=== PATIENT | female | born 1995 | race Caucasian/White ===

== ENCOUNTER 2016-12-18 23:11 | Emergency (ER) | payer OTHER ==
[2016-12-18 23:25] VITALS: BP 129/66; PULSE 104; RESP 18; TEMP 98
[2016-12-18] MEDS ORDERED: valACYclovir 500 MG TAB PO STA (23:41)
--- NOTE | 2016-12-18 23:45 | ED ---
General Adult HPI - General Chief complaint: Headache Stated complaint: Head/Neck Pain/ 9 weeks Time Seen by Provider: 12/18/16 23:30 Source: patient, RN notes reviewed Mode of arrival: ambulatory Limitations: no limitations - History of Present Illness Initial comments: 21-year-old female presented emergency Department chief complaint headache, loss of neck pain. Patient states started a few days ago and states that she feels some lumps in her posterior neck and also shebumps her scalp. She states she is very sensitive. Patient did states she had chickenpox when she was younger. Denies fever, chills. Denies any ear pain, sore throat, fever, chills. Denies any visual changes denies any relief with Tylenol at this time. Patient states that she is and weeks and does see Jason King - Related Data Home Medications Medication Instructions Recorded Confirmed metFORMIN HCL [Glucophage] 500 mg PO BID 12/18/16 12/18/16 Previous Rx's Medication Instructions Recorded valACYclovir HCL [Valtrex] 1,000 mg PO Q8HR #30 tab 12/18/16 Allergies Allergy/AdvReac Type Severity Reaction Status Date / Time No Known Allergies Allergy Verified 12/18/16 23:25 Review of Systems ROS Statement: Those systems with pertinent positive or pertinent negative responses have been documented in the HPI. ROS Other: All systems not noted in ROS Statement are negative. Past Medical History Additional Past Medical History / Comment(s): heart palpitations History of Any Multi-Drug Resistant Organisms: None Reported Past Surgical History: No Surgical Hx Reported Past Psychological History: Depression Smoking Status: Current every day smoker Past Alcohol Use History: None Reported Past Drug Use History: None Reported General Exam Limitations: no limitations General appearance: alert, in no apparent distress Head exam: Present: atraumatic, normocephalic. Absent: normal inspection ( Vesicles noted on the left side of the scalp and posterior neck region there is no facial lesions noted) Eye exam: Present: normal appearance, PERRL, EOMI. Absent: scleral icterus, conjunctival injection, periorbital swelling ENT exam: Present: normal exam, normal oropharynx, mucous membranes moist, TM's normal bilaterally, normal external ear exam Neck exam: Present: normal inspection, full ROM. Absent: tenderness, meningismus, lymphadenopathy Respiratory exam: Present: normal lung sounds bilaterally. Absent: respiratory distress, wheezes, rales, rhonchi, stridor Cardiovascular Exam: Present: regular rate, normal rhythm, normal heart sounds. Absent: systolic murmur, diastolic murmur, rubs, gallop, clicks Neurological exam: Present: alert, oriented X3, CN II-XII intact, reflexes normal. Absent: motor sensory deficit Psychiatric exam: Present: normal affect, normal mood Skin exam: Present: warm, dry, intact, normal color. Absent: rash Course Vital Signs 12/18/16 23:21 Temperature 98.0 F Pulse Rate 104 H Respiratory 18 Rate Blood Pressure 129/66 O2 Sat by Pulse 100 Oximetry Medical Decision Making - Medical Decision Making 21-year-old female presented for left sided head and neck pain. Patient has shingles. Patient was started on Valtrex. 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 Return parameters were discussed. She'll take over-the- counter Tylenol. Disposition Clinical Impression: Herpes zoster Disposition: HOME SELF-CARE Condition: Stable Instructions: Shingles (ED) Additional Instructions: Please return to the Emergency Department if symptoms worsen or any other concerns. Prescriptions: valACYclovir HCL [Valtrex] 1,000 mg PO Q8HR #30 tab Time of Disposition: 23:44
== END 2016-12-18 23:52 | disposition home or self-care (01) ==
LOC: EC 23:11
DX: O98.511 Other viral diseases complicating pregnancy, first trimester (principal); B02.9 Zoster without complications; O99.331 Smoking (tobacco) complicating pregnancy, first trimester; F17.200 Nicotine dependence, unspecified, uncomplicated; Z3A.09 9 weeks gestation of pregnancy; Z79.84 Long term (current) use of oral hypoglycemic drugs
CPT/HCPCS: 99283

== ENCOUNTER → 2017-02-17 | Outpatient (CLI) | payer OTHER ==
[2017-02-19 07:45] LABS: Hepatits C Virus RNA, Quant <12 IU/mL (<12); LOG HCV IU/mL <1.08 (<1.08)
== END | disposition home or self-care (01) ==
LOC: LABWHC1 10:28
PROVIDERS: ATTEND Midwife
DX: Z09 Encounter for follow-up examination after completed treatment for conditions other than malignant neoplasm (principal); Z86.19 Personal history of other infectious and parasitic diseases
CPT/HCPCS: 36415; 87522

== ENCOUNTER → 2017-03-08 | Outpatient (CLI) | payer OTHER ==
--- NOTE | 2017-03-08 08:23 | US ---
EXAMINATION TYPE: US gallbladder DATE OF EXAM: 03/08/2017 COMPARISON: NONE CLINICAL HISTORY: R10.11 Right upper quadrant pain. EXAM MEASUREMENTS: Liver Length: 14.1 cm Gallbladder Wall: 0.2 cm CBD: 0.3 cm Right Kidney: 11.6 x 4.3 x 4.9 cm Pancreas: wnl Liver: wnl Gallbladder: small amount of dependant sludge Evidence for sonographic Troy's sign: No CBD: wnl Right Kidney: wnl Limited views of the pancreas are normal. The liver is normal in size without evidence of biliary dilatation. There is a small amount of sludge within the gallbladder. The gallbladder wall measures 2.3 mm. Dista l common hepatic duct measures 2.7 mm. The right kidney appears normal. IMPRESSION: SMALL AMOUNT OF SLUDGE WITHIN THE GALLBLADDER.
== END | disposition home or self-care (01) ==
LOC: RADUSWWP 07:35
PROVIDERS: ATTEND Obstetrics & Gynecology
DX: K82.8 Other specified diseases of gallbladder (principal)
CPT/HCPCS: 76705

== ENCOUNTER → 2017-04-26 | Outpatient (CLI) | payer OTHER ==
[2017-04-26 12:36] LABS: Basophils % (A) 0 %; CH 31.8; CHCM 34.3; Eosinophils # (A) 0.1 k/uL (0-0.7); Eosinophils % (A) 1 %; HCT 34.1 % (34.0-46.0); HDW 2.44; HGB 11.5 gm/dL (11.4-16.0); Luc # (Auto) 0.12; Luc % (Auto) 1; Lymphocytes # (A) 1.5 k/uL (1.0-4.8); Lymphocytes % (A) 14 %; MCH 31.6 pg (25.0-35.0); MCHC 33.8 g/dL (31.0-37.0); MCV 93.3 fL (80.0-100.0); Mean Platelet Volume 9.9; Monocytes # (A) 0.3 k/uL (0-1.0); Monocytes % (A) 3 %; Neutrophils # (A) 9.2 k/uL (1.3-7.7); Neutrophils % (A) 82 %; RBC 3.65 m/uL (3.80-5.40); WBC 11.3 k/uL (3.8-10.6); WBC (Perox) 11.07
[2017-04-26 15:36] LABS: Treponemal Ab Non-Reactive (Non-Reactive)
== END | disposition home or self-care (01) ==
LOC: LABWHC1 10:21
PROVIDERS: ATTEND Midwife
DX: Z36 Encounter for antenatal screening of mother (principal)
CPT/HCPCS: 36415; 82950; 85025; 86780; 87390

== ENCOUNTER 2017-06-23 | Outpatient (CLI) | payer OTHER ==
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
== END 2017-06-23 22:30 | disposition home or self-care (01) ==
CPT/HCPCS: 59025; G0463; 99213

== ENCOUNTER 2017-06-23 17:22 | Emergency (ER) | payer OTHER ==
[2017-06-23 17:33] VITALS: BP 153/80; PULSE 98; RESP 18; TEMP 98.1
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
== END 2017-06-23 18:12 | disposition home or self-care (01) ==
LOC: EC 17:22
DX: Z04.1 Encounter for examination and observation following transport accident (principal); Z3A.36 36 weeks gestation of pregnancy; Z79.891 Long term (current) use of opiate analgesic; Z79.84 Long term (current) use of oral hypoglycemic drugs; V48.9XXA Unspecified car occupant injured in noncollision transport accident in traffic accident, initial encounter; Y92.410 Unspecified street and highway as the place of occurrence of the external cause
CPT/HCPCS: 99284

== ENCOUNTER → 2020-01-15 | Outpatient (CLI) | payer OTHER | END | disposition home or self-care (01) | LOC: LABWHC1 11:29 | PROVIDERS: ATTEND Family Medicine | DX: N91.2 Amenorrhea, unspecified (principal) | CPT/HCPCS: 36415; 84702 ==

== ENCOUNTER 2022-01-08 17:07 | Emergency (ER) | payer OTHER ==
[2022-01-08 17:16] VITALS: RESP 18; TEMP 98.1
[2022-01-08] MEDS ORDERED: SODIUM CHLORIDE 0.9% 1,000 ML IV STA (18:07)
[2022-01-08] MEDS ORDERED: MORPHINE SULFATE 4 MG/ML SYRINGE IV STA (18:16)
[2022-01-08] MEDS ORDERED: ONDANSETRON 4 MG/2 ML VIAL IVP STA (18:16)
[2022-01-08 18:17] LABS: Basophils % (A) 1 %; Eosinophils # (A) 0.1 k/uL (0-0.7); Eosinophils % (A) 1 %; HCT 45.1 % (34.0-46.0); Lymphocytes % (A) 13 %; MCH 31.4 pg (25.0-35.0); MCHC 33.3 g/dL (31.0-37.0); MCV 94.4 fL (80.0-100.0); Mean Platelet Volume 8.4; Monocytes # (A) 0.3 k/uL (0-1.0); Monocytes % (A) 4 %; Neutrophils # (A) 5.9 k/uL (1.3-7.7); Neutrophils % (A) 80 %; Platelet Count 191 k/uL (150-450); RBC 4.78 m/uL (3.80-5.40); RDW 12.4 % (11.5-15.5); WBC 7.4 k/uL (3.8-10.6)
--- NOTE | 2022-01-08 18:20 | ED ---
General Adult HPI - General Chief complaint: Recheck/Abnormal Lab/Rx Stated complaint: Rt sided pain,Urgent Care sent pt in Time Seen by Provider: 01/08/22 18:05 Source: patient, RN notes reviewed Mode of arrival: ambulatory Limitations: no limitations - History of Present Illness Initial comments: Right upper quadrant and epigastric pain this is a pleasant 27-year-old female with a history of hepatitis C, she presents to the emergency department complaining of nausea, vomiting, and diarrhea. Patient states symptomology started yesterday. She went to urgent care today and found bilirubin her urine. She was sent here for evaluation. Patient denies any fever. She denies any illicit drug abuse. Patient does have a history of IV drug abuse. She states that's how she got the hepatitis C several years ago. No previous abdominal kyle geries. Positive cigarette smoker. Occasional alcohol use. Denies illicit drug abuse. No acetaminophen use. No headache, no fever or chills, no changes in vision or hearing, no sore throat or difficulty with speech, no neck pain, no chest pain or shortness of breath, no changes in urination or bowel movements, no numbness or tingling, no extremity pain, no skin rashes or lesions. - Related Data Previous Rx's Medication Instructions Recorded Famotidine [Pepcid] 20 mg PO BID #30 tablet 01/08/22 Ondansetron [Zofran ODT] 4 mg PO Q8HR #20 tab 01/08/22 Allergies Allergy/AdvReac Type Severity Reaction Status Date / Time No Known Allergies Allergy Verified 01/08/22 18:53 Review of Systems ROS Statement: Those systems with pertinent positive or pertinent negative responses have been documented in the HPI. ROS Other: All systems not noted in ROS Statement are negative. Past Medical History Additional Past Medical History / Comment(s): heart palpitations History of Any Multi-Drug Resistant Organisms: None Reported Past Surgical History: No Surgical Hx Reported, Section Past Psychological History: Depression Smoking Status: Current every day smoker Past Alcohol Use History: None Reported Past Drug Use History: None Reported General Exam - General Exam Comments Initial Comments: Healthy-appearing 27-year-old female distress. Patient does not appear to be ill or toxic. Mildly tachycardic, remainder of vital signs are stable. Cranial nerves II through XII grossly intact. Limitations: no limitations General appearance: alert, in no apparent distress Head exam: Present: atraumatic, normocephalic, normal inspection Eye exam: Present: normal appearance, PERRL, EOMI. Absent: scleral icterus, conjunctival injection, nystagmus, periorbital swelling ENT exam: Present: normal exam, normal oropharynx, mucous membranes moist. Absent: mucous membranes dry Neck exam: Present: normal inspection, full ROM. Absent: tenderness, meningismus, lymphadenopathy Respiratory exam: Present: normal lung sounds bilaterally. Absent: respiratory distress, wheezes, rales, rhonchi, stridor Cardiovascular Exam: Present: normal rhythm, tachycardia (104 bpm), normal heart sounds. Absent: systolic murmur, diastolic murmur, rubs, gallop, clicks GI/Abdominal exam: Present: soft, tenderness (Tenderness in the epigastric region and to a lesser sent the right upper quadrant. Voluntary guarding without rebound or percussion tenderness), guarding, normal bowel sounds. Absent: distended, rebound, rigid Extremities exam: Present: normal inspection, full ROM, normal capillary refill. Absent: tenderness, pedal edema, joint swelling, calf tenderness Back exam: Present: normal inspection Neurological exam: Present: alert, oriented X3, CN II-XII intact Psychiatric exam: Present: normal affect, normal mood Skin exam: Present: warm, dry, intact, normal color. Absent: rash Course Vital Signs 01/08/22 17:12 Temperature 98.1 F Pulse Rate 104 H Respiratory 18 Rate Blood Pressure 120/80 O2 Sat by Pulse 100 Oximetry - Reevaluation(s) Reevaluation #1: 01/08/22 20:15 Medical record is reviewed Symptoms are improved here in the emergency department, repeat abdominal examination is benign, patient in no distress. Patient's workup here essentially negative. Patient is informed of results and questions answered Patient in no distress Medical Decision Making - Medical Decision Making Patient presents with epigastric and right upper quadrant pain, vomiting, and diarrhea. Differential include pancreatitis, gallbladder disease, hepatic disease, possible peptic ulcer disease. Given the patient's symptomology, less likely to be perforated viscus. Patient has no cardiac pulmonary complaints, presentation does not fit the clinical picture. No evidence of jaundice or scleral icterus twits when the patient's bili rubinuria. She has no vaginal discharge and denies chance of . Note that the patient's reevaluation was essentially benign. Patient's workup here was negative. Patient had no significant abdominal tenderness other than mild epigastric tenderness. This does raise a suspicion of possible early peptic ulcer disease--Although the patient's cephalgia more consistent with gastroenteritis as she is in no distress at discharge without any significant tenderness. There was no hematemesis or coffee-ground emesis. No melena or hematochezia. We'll place the patient on famotidine for the next few days as well as Zofran. Patient was able to hold down fluids in the ER without difficulty. Patient was told to return to the ER for any signs or symptoms worsen. Told to return immediately if any other problems arise. All questions answered. Treatment plan discussed. Patient in agreement Every effort has been made to ensure accuracy of this dictation. However, due to the limitations of electronic medical records and dictation devices, errors in charting still occur. - Lab Data Result diagrams: 01/08/22 18:11 01/08/22 18:11 Lab Results 01/08/22 01/08/22 01/08/22 Range/Units 18:11 18:11 18:43 WBC 7.4 (3.8-10.6) k/uL RBC 4.78 (3.80-5.40) m/uL Hgb 15.0 (11.4-16.0) gm/dL Hct 45.1 (34.0-46.0) % MCV 94.4 (80.0-100.0) fL MCH 31.4 (25.0-35.0) pg MCHC 33.3 (31.0-37.0) g/dL RDW 12.4 (11.5-15.5) % Plt Count 191 (150-450) k/uL MPV 8.4 Neutrophils % 80 % Lymphocytes % 13 % Monocytes % 4 % Eosinophils % 1 % Basophils % 1 % Neutrophils # 5.9 (1.3-7.7) k/uL Lymphocytes # 1.0 (1.0-4.8) k/uL Monocytes # 0.3 (0-1.0) k/uL Eosinophils # 0.1 (0-0.7) k/uL Basophils # 0.0 (0-0.2) k/uL Sodium 136 L (137-145) mmol/L Potassium 3.5 (3.5-5.1) mmol/L Chloride 103 (98-107) mmol/L Carbon Dioxide 25 (22-30) mmol/L Anion Gap 8 mmol/L BUN 13 (7-17) mg/dL Creatinine 0.65 (0.52-1.04) mg/dL Est GFR (CKD-EPI)AfAm >90 (>60 ml/min/1.73 sqM) Est GFR (CKD-EPI)NonAf >90 (>60 ml/min/1.73 sqM) Glucose 84 (74-99) mg/dL Plasma Lactic Acid [place] 0.7 (0.7-2.0) mmol/L Calcium 9.2 (8.4-10.2) mg/dL Total Bilirubin 0.8 (0.2-1.3) mg/dL Conjugated Bilirubin 0.0 (0.0-0.3) mg/dL Unconjugated Bilirubin 0.7 (0.0-1.1) mg/dL Delta Bilirubin 0.1 (0.0-0.2) mg/dL AST 24 (14-36) U/L ALT 19 (4-34) U/L Alkaline Phosphatase 71 (38-126) U/L Total Protein 7.7 (6.3-8.2) g/dL Albumin 4.5 (3.5-5.0) g/dL Lipase 34 (23-300) U/L Urine Color Urine Appearance (Clear) Urine pH (5.0-8.0) Ur Specific [place] (1.001-1.035) Urine Protein (Negative) Urine Glucose (UA) (Negative) Urine Ketones (Negative) Urine Blood (Negative) Urine Nitrite (Negative) Urine Bilirubin (Negative) Urine Urobilinogen (<2.0) mg/dL Ur Leukocyte Esterase (Negative) Urine RBC (0-5) /hpf Urine WBC (0-5) /hpf Ur Squamous Epith Cells (0-4) /hpf Urine Bacteria (None) /hpf Hyaline Casts (0-2) /lpf Urine Mucus (None) /hpf 01/08/22 Range/Units 19:56 WBC (3.8-10.6) k/uL RBC (3.80-5.40) m/uL Hgb (11.4-16.0) gm/dL Hct (34.0-46.0) % MCV (80.0-100.0) fL MCH (25.0-35.0) pg MCHC (31.0-37.0) g/dL RDW (11.5-15.5) % Plt Count (150-450) k/uL MPV Neutrophils % % Lymphocytes % % Monocytes % % Eosinophils % % Basophils % % Neutrophils # (1.3-7.7) k/uL Lymphocytes # (1.0-4.8) k/uL Monocytes # (0-1.0) k/uL Eosinophils # (0-0.7) k/uL Basophils # (0-0.2) k/uL Sodium (137-145) mmol/L Potassium (3.5-5.1) mmol/L Chloride (98-107) mmol/L Carbon Dioxide (22-30) mmol/L Anion Gap mmol/L BUN (7-17) mg/dL Creatinine (0.52-1.04) mg/dL Est GFR (CKD-EPI)AfAm (>60 ml/min/1.73 sqM) Est GFR (CKD-EPI)NonAf (>60 ml/min/1.73 sqM) Glucose (74-99) mg/dL Plasma Lactic Acid [place] (0.7-2.0) mmol/L Calcium (8.4-10.2) mg/dL Total Bilirubin (0.2-1.3) mg/dL Conjugated Bilirubin (0.0-0.3) mg/dL Unconjugated Bilirubin (0.0-1.1) mg/dL Delta Bilirubin (0.0-0.2) mg/dL AST (14-36) U/L ALT (4-34) U/L Alkaline Phosphatase (38-126) U/L Total Protein (6.3-8.2) g/dL Albumin (3.5-5.0) g/dL Lipase (23-300) U/L Urine Color Yellow Urine Appearance Cloudy H (Clear) Urine pH 6.0 (5.0-8.0) Ur Specific [place] 1.029 (1.001-1.035) Urine Protein Trace H (Negative) Urine Glucose (UA) Negative (Negative) Urine Ketones 1+ H (Negative) Urine Blood Negative (Negative) Urine Nitrite Negative (Negative) Urine Bilirubin Negative (Negative) Urine Urobilinogen 2.0 (<2.0) mg/dL Ur Leukocyte Esterase Negative (Negative) Urine RBC 2 (0-5) /hpf Urine WBC 5 (0-5) /hpf Ur Squamous Epith Cells 6 H (0-4) /hpf Urine Bacteria Rare H (None) /hpf Hyaline Casts 1 (0-2) /lpf Urine Mucus Many H (None) /hpf - Radiology Data Radiology results: report reviewed, image reviewed Disposition Clinical Impression: Gastroenteritis, Epigastric abdominal pain Disposition: HOME SELF-CARE Condition: Good Instructions (If sedation given, give patient instructions): Gastroenteritis (ED) Additional Instructions: Follow-up with your regular physician as directed. Return to the ER immediately if any symptoms worsen, new symptoms arise, or any other problems develop. Prescriptions: Famotidine [Pepcid] 20 mg PO BID #30 tablet Ondansetron [Zofran ODT] 4 mg PO Q8HR #20 tab Is patient prescribed a controlled substance at d/c from ED?: No Referrals: Amanda Astorga MD [STAFF PHYSICIAN] - 01/15/22 Time of Disposition: 20:19
[2022-01-08 18:26] LABS: ALT 19 U/L (4-34); AST 24 U/L (14-36); African American GFR (CKD) >90 (>60 ml/min/1.73 sqM); Albumin 4.5 g/dL (3.5-5.0); Alkaline Phosphatase 71 U/L (38-126); Anion Gap 8 mmol/L; Bilirubin, Delta 0.1 mg/dL (0.0-0.2); Bilirubin,Unconjugated 0.7 mg/dL (0.0-1.1); Blood Urea Nitrogen 13 mg/dL (7-17); Calcium 9.2 mg/dL (8.4-10.2); Carbon Dioxide 25 mmol/L (22-30); Chloride 103 mmol/L (98-107); Glucose 84 mg/dL (74-99); Lipase 34 U/L (23-300); Non-African American GFR(CKD) >90 (>60 ml/min/1.73 sqM); Sodium 136 mmol/L (137-145); Total Bilirubin 0.8 mg/dL (0.2-1.3); Total Protein 7.7 g/dL (6.3-8.2)
[2022-01-08 18:51] LABS: Potassium 3.5 mmol/L (3.5-5.1)
--- NOTE | 2022-01-08 20:04 | US ---
EXAMINATION TYPE: US abdomen limited DATE OF EXAM: 01/08/2022 COMPARISON: 2016 CLINICAL HISTORY: RUQ and epigastric pain EXAM MEASUREMENTS: Liver Length: 16.4 cm Gallbladder Wall: 0.31 cm CBD: 0.26 cm Right Kidney: 10.3 x 3.8 x 5.2 cm Pancreas: Tail obscured by overlying bowel gas Liver: wnl Gallbladder: Appears wnl Evidence for sonographic Troy's sign: No CBD: wnl Right Kidney: No hydronephrosis or masses seen IMPRESSION: No acute process.
[2022-01-08 20:12] LABS: Appearance,Urine Cloudy (Clear); Bacteria,Urine Rare /hpf; Bilirubin,Urine Negative (Negative); Blood,Urine Negative (Negative); Color,Urine Yellow; Glucose,Urine (UA) Negative (Negative); Hyaline Casts,Urine 1 /lpf (0-2); Ketones,Urine 1+ (Negative); Leukocyte Esterase,Urine Negative (Negative); Mucus,Urine Many /hpf; Nitrite,Urine Negative (Negative); Protein,Urine Trace (Negative); RBC,Urine 2 /hpf (0-5); Specific Gravity,Urine 1.029 (1.001-1.035); Squamous Epithelial Cell,Urine 6 /hpf (0-4); WBC,Urine 5 /hpf (0-5)
[2022-01-08 20:37] VITALS: BP 109/69; PULSE 71
== END 2022-01-08 20:45 | disposition home or self-care (01) ==
LOC: EC 17:07
DX: K52.9 Noninfective gastroenteritis and colitis, unspecified (principal); F32.A Depression, unspecified; F17.200 Nicotine dependence, unspecified, uncomplicated
CPT/HCPCS: 99284; 96374; 96375; 96361; 36415; 80048; 80076; 83605; 83690; 85025; 81001; 81025; 76705; J2270; J2405

== ENCOUNTER 2022-04-08 06:53 | Emergency (ER) | payer OTHER ==
[2022-04-08 07:23] VITALS: RESP 16
[2022-04-08] MEDS ORDERED: SODIUM CHLORIDE 0.9% 1,000 ML IV STA (07:31)
[2022-04-08] MEDS ORDERED: diphenhydrAMINE 50 MG/ML 1 ML VIAL IVP STA (07:31)
[2022-04-08] MEDS ORDERED: KETOROLAC 15 MG/ML 1 ML VIAL IVP STA (07:31)
[2022-04-08] MEDS ORDERED: ONDANSETRON 4 MG/2 ML VIAL IVP STA (07:31)
[2022-04-08] MEDS ORDERED: PANTOPRAZOLE 40 MG/10 ML VIAL IVP STA (07:31)
[2022-04-08] MEDS ORDERED: MORPHINE SULFATE 4 MG/ML SYRINGE IV STA (07:31)
--- NOTE | 2022-04-08 07:36 | ED ---
General Adult HPI - General Chief complaint: Abdominal Pain Stated complaint: Abd Pain/Vomiting Time Seen by Provider: 04/08/22 07:24 Source: patient, RN notes reviewed, old records reviewed Mode of arrival: ambulatory Limitations: no limitations - History of Present Illness Initial comments: Patient is a 27-year-old female with past medical history remarkable for biliary colic who presents emergency Department complaining of a one-day history of left -sided flank pain. Describes the pain as sharp, mostly in the left flank that somewhat radiates towards her left kidney as well as towards her left groin. Endorses nausea and vomiting this morning which is what she presents emergency department. Emesis is nonbilious nonbloody. Clear in nature. Denies change in bowel movements. Denies dysuria, hematuria, vaginal bleeding or discharge. Denies being . Has no chest pain or shortness breath or cough. Denies any fevers. His no other acute complaints at this time. Presents emergency department for further evaluation. Patient states she drinks alcohol rarely, does smoke marijuana and relatively daily basis, and denies any other drug use. - Related Data Previous Rx's Medication Instructions Recorded HYDROcodone/APAP 5-325MG [[place] 1 tab PO Q6HR PRN 3 Days #12 tab 04/08/22 5-325] Ibuprofen 800 mg PO Q8H 7 Days #21 tab 04/08/22 Ondansetron Odt [Zofran Odt] 4 mg PO Q8HR PRN 3 Days #9 tab 04/08/22 Tamsulosin HCl [Flomax] 0.4 mg PO DAILY 7 Days #7 capsule 04/08/22 Allergies Allergy/AdvReac Type Severity Reaction Status Date / Time No Known Allergies Allergy Verified 04/08/22 08:45 Review of Systems ROS Statement: Those systems with pertinent positive or pertinent negative responses have been documented in the HPI. Review of Systems: CONST: Denies fever EYES: Denies blurry vision ENT: Denies nasal congestion C/V: Denies Chest pain RESP: Denies shortness of breath GI: Endorses abdominal pain. : Denies dysuria SKIN: Denies rash. MSK: Denies joint pain. NEURO: Denies headache ROS Other: All systems not noted in ROS Statement are negative. Past Medical History Past Medical History: No Reported History Additional Past Medical History / Comment(s): heart palpitations History of Any Multi-Drug Resistant Organisms: None Reported Past Surgical History: No Surgical Hx Reported, Section Past Psychological History: Depression Smoking Status: Current every day smoker Past Alcohol Use History: None Reported Past Drug Use History: None Reported General Exam - General Exam Comments Initial Comments: General: Appears in mild distress secondary to left-sided abdominal pain. HEAD: Normal with no signs of head trauma. EYES: PERRLA, EOMI, conjunctiva normal, no discharge. ENT: Hearing grossly intact, normal oropharynx. Moist mucous membranes. RESPIRATORY: Clear breath sounds bilaterally. No wheezes, rales, or rhonchi. C/V: Regular rate and rhythm. S1 and S2 auscultated, no edema, peripheral pulses 2+ and intact throughout ABD: Abdomen soft, nondistended. I was tender to palpation and left flank region. Mild tenderness to percussion of the left CVA. No right-sided pain. No peritoneal signs. No guarding. No rebound tenderness. EXT: Normal range of motion, no obvious deformity SKIN: No rashes or lesions observed on exposed skin. NEURO: Alert and oriented 4. Limitations: no limitations Course Vital Signs 04/08/22 04/08/22 07:21 09:55 Temperature 98.1 F 98 F Pulse Rate 67 65 Respiratory 16 16 Rate Blood Pressure 115/76 104/71 O2 Sat by Pulse 99 99 Oximetry Medical Decision Making - Medical Decision Making Based on the patient's presentation and physical exam, and concern for acute intra-abdominal process. Her current symptoms. I my differential includes sym ptomatic nephrolithiasis. We will start with abdominal laboratory studies, urine studies, abdominal x-ray as well as ultrasound. Patient will be symptomatically treated with IV medications and fluids. She was in agreement with this plan. She is no history of kidney stones. Does not believe she is . Vital signs are within normal limits. Laboratory studies are remarkable for hematuria. Patient is not . Remainder of the labs are unremarkable. Abdominal x-ray reveals no acute process. Renal ultrasound does reveal mild left-sided hydronephrosis. On reevaluation, patient's pain is improved and to control. I did discuss with her the results of her imaging and laboratory studies. She appears to have renal colic, left. Likely has a small kidney stone. It is not infected. I discussed with her that she can be discharged home with close follow-up with urology as needed with pain control as well as antiemetics. She was in agreement with this plan. She is indirect signs of kidney stone with hematuria as well as the left hydronephrosis and obvious physical exam findings of renal colic. We discussed CT imaging, however both agreed that is not required at this time. Vital signs remained within normal limits. She'll be discharged home with close follow-up. I will provide the patient with a prescription for Flomax, [place], ODT Zofran. I instructed the patient to follow up with their PCP in the next 1-3 days. I provided contact information for follow up with urology. I explained that the patient should return to the emergency department if they experience any worsening symptoms. Strict return precautions were discussed with the patient. The patient expressed understanding of these instructions. I answered all questions that the patient had. The patient was discharged home in good condition with their prescriptions and follow up information. - Lab Data Result diagrams: 04/08/22 07:39 04/08/22 07:39 Lab Results 04/08/22 04/08/22 04/08/22 Range/Units 07:39 07:39 07:39 WBC 7.4 (3.8-10.6) k/uL RBC 4.36 (3.80-5.40) m/uL Hgb 13.9 (11.4-16.0) gm/dL Hct 41.5 (34.0-46.0) % MCV 95.3 (80.0-100.0) fL MCH 31.9 (25.0-35.0) pg MCHC 33.5 (31.0-37.0) g/dL RDW 12.3 (11.5-15.5) % Plt Count 190 (150-450) k/uL MPV 9.0 Neutrophils % 63 % Lymphocytes % 28 % Monocytes % 4 % Eosinophils % 2 % Basophils % 1 % Neutrophils # 4.7 (1.3-7.7) k/uL Lymphocytes # 2.1 (1.0-4.8) k/uL Monocytes # 0.3 (0-1.0) k/uL Eosinophils # 0.1 (0-0.7) k/uL Basophils # 0.1 (0-0.2) k/uL PT 10.4 (9.0-12.0) sec INR 1.0 (<1.2) APTT 24.5 (22.0-30.0) sec Sodium (137-145) mmol/L Potassium (3.5-5.1) mmol/L Chloride (98-107) mmol/L Carbon Dioxide (22-30) mmol/L Anion Gap mmol/L BUN (7-17) mg/dL Creatinine (0.52-1.04) mg/dL Est GFR (CKD-EPI)AfAm (>60 ml/min/1.73 sqM) Est GFR (CKD-EPI)NonAf (>60 ml/min/1.73 sqM) Glucose (74-99) mg/dL Calcium (8.4-10.2) mg/dL Total Bilirubin (0.2-1.3) mg/dL AST (14-36) U/L ALT (4-34) U/L Alkaline Phosphatase (38-126) U/L Total Protein (6.3-8.2) g/dL Albumin (3.5-5.0) g/dL Amylase (30-110) U/L Lipase (23-300) U/L Urine Color Yellow Urine Appearance Clear (Clear) Urine pH 5.5 (5.0-8.0) Ur Specific [place] 1.021 (1.001-1.035) Urine Protein Negative (Negative) Urine Glucose (UA) Negative (Negative) Urine Ketones Negative (Negative) Urine Blood Small H (Negative) Urine Nitrite Negative (Negative) Urine Bilirubin Negative (Negative) Urine Urobilinogen <2.0 (<2.0) mg/dL Ur Leukocyte Esterase Negative (Negative) Urine RBC 27 H (0-5) /hpf Urine WBC 3 (0-5) /hpf Ur Squamous Epith Cells 5 H (0-4) /hpf Urine Mucus Few H (None) /hpf Urine HCG, Qual (Not Detectd) 04/08/22 04/08/22 Range/Units 07:39 07:39 WBC (3.8-10.6) k/uL RBC (3.80-5.40) m/uL Hgb (11.4-16.0) gm/dL Hct (34.0-46.0) % MCV (80.0-100.0) fL MCH (25.0-35.0) pg MCHC (31.0-37.0) g/dL RDW (11.5-15.5) % Plt Count (150-450) k/uL MPV Neutrophils % % Lymphocytes % % Monocytes % % Eosinophils % % Basophils % % Neutrophils # (1.3-7.7) k/uL Lymphocytes # (1.0-4.8) k/uL Monocytes # (0-1.0) k/uL Eosinophils # (0-0.7) k/uL Basophils # (0-0.2) k/uL PT (9.0-12.0) sec INR (<1.2) APTT (22.0-30.0) sec Sodium 140 (137-145) mmol/L Potassium 4.4 (3.5-5.1) mmol/L Chloride 107 (98-107) mmol/L Carbon Dioxide 26 (22-30) mmol/L Anion Gap 7 mmol/L BUN 13 (7-17) mg/dL Creatinine 0.63 (0.52-1.04) mg/dL Est GFR (CKD-EPI)AfAm >90 (>60 ml/min/1.73 sqM) Est GFR (CKD-EPI)NonAf >90 (>60 ml/min/1.73 sqM) Glucose 91 (74-99) mg/dL Calcium 9.0 (8.4-10.2) mg/dL Total Bilirubin 0.4 (0.2-1.3) mg/dL AST 22 (14-36) U/L ALT 14 (4-34) U/L Alkaline Phosphatase 74 (38-126) U/L Total Protein 7.4 (6.3-8.2) g/dL Albumin 4.6 (3.5-5.0) g/dL Amylase 60 (30-110) U/L Lipase 50 (23-300) U/L Urine Color Urine Appearance (Clear) Urine pH (5.0-8.0) Ur Specific [place] (1.001-1.035) Urine Protein (Negative) Urine Glucose (UA) (Negative) Urine Ketones (Negative) Urine Blood (Negative) Urine Nitrite (Negative) Urine Bilirubin (Negative) Urine Urobilinogen (<2.0) mg/dL Ur Leukocyte Esterase (Negative) Urine RBC (0-5) /hpf Urine WBC (0-5) /hpf Ur Squamous Epith Cells (0-4) /hpf Urine Mucus (None) /hpf Urine HCG, Qual Not Detected (Not Detectd) Disposition Clinical Impression: Nephrolithiasis, Flank pain Disposition: HOME SELF-CARE Condition: Good Instructions (If sedation given, give patient instructions): Kidney Stones (ED) Prescriptions: Tamsulosin HCl [Flomax] 0.4 mg PO DAILY 7 Days #7 capsule Ibuprofen 800 mg PO Q8H 7 Days #21 tab HYDROcodone/APAP 5-325MG [[place] 5-325] 1 tab PO Q6HR PRN 3 Days #12 tab PRN Reason: Pain Ondansetron Odt [Zofran Odt] 4 mg PO Q8HR PRN 3 Days #9 tab PRN Reason: Nausea Is patient prescribed a controlled substance at d/c from ED?: Yes When asked, does pt state using other controlled substances?: No If prescribed controlled substance>3 days was MAPS reviewed?: Prescribed <3 Days If opioid is for acute pain is fill amount 7 days or less?: Yes If Rx opioid, was Start Talking consent form obtained?: Yes Referrals: None,Stated [Primary Care Provider] - 1-2 days Solomon Aldrich MD [STAFF PHYSICIAN] - 1-2 days Time of Disposition: 09:24
[2022-04-08 08:08] LABS: Basophils # (A) 0.1 k/uL (0-0.2); Basophils % (A) 1 %; Eosinophils # (A) 0.1 k/uL (0-0.7); Eosinophils % (A) 2 %; HCT 41.5 % (34.0-46.0); HGB 13.9 gm/dL (11.4-16.0); Lymphocytes # (A) 2.1 k/uL (1.0-4.8); Lymphocytes % (A) 28 %; MCH 31.9 pg (25.0-35.0); MCHC 33.5 g/dL (31.0-37.0); MCV 95.3 fL (80.0-100.0); Monocytes # (A) 0.3 k/uL (0-1.0); Monocytes % (A) 4 %; Neutrophils # (A) 4.7 k/uL (1.3-7.7); Neutrophils % (A) 63 %; Platelet Count 190 k/uL (150-450); RBC 4.36 m/uL (3.80-5.40); RDW 12.3 % (11.5-15.5); WBC 7.4 k/uL (3.8-10.6)
[2022-04-08 08:12] LABS: Appearance,Urine Clear (Clear); Bilirubin,Urine Negative (Negative); Blood,Urine Small (Negative); Color,Urine Yellow; Glucose,Urine (UA) Negative (Negative); Ketones,Urine Negative (Negative); Leukocyte Esterase,Urine Negative (Negative); Mucus,Urine Few /hpf; Nitrite,Urine Negative (Negative); PH, Urine 5.5 (5.0-8.0); Protein,Urine Negative (Negative); RBC,Urine 27 /hpf (0-5); Specific Gravity,Urine 1.021 (1.001-1.035); Squamous Epithelial Cell,Urine 5 /hpf (0-4); Urobilinogen,Urine <2.0 mg/dL (<2.0); WBC,Urine 3 /hpf (0-5)
[2022-04-08 08:20] LABS: ALT 14 U/L (4-34); African American GFR (CKD) >90 (>60 ml/min/1.73 sqM); Albumin 4.6 g/dL (3.5-5.0); Alkaline Phosphatase 74 U/L (38-126); Amylase 60 U/L (30-110); Anion Gap 7 mmol/L; Carbon Dioxide 26 mmol/L (22-30); Chloride 107 mmol/L (98-107); Lipase 50 U/L (23-300); Non-African American GFR(CKD) >90 (>60 ml/min/1.73 sqM); Potassium 4.4 mmol/L (3.5-5.1); Sodium 140 mmol/L (137-145); Total Protein 7.4 g/dL (6.3-8.2)
[2022-04-08 08:21] LABS: AST 22 U/L (14-36); Blood Urea Nitrogen 13 mg/dL (7-17); Glucose 91 mg/dL (74-99); Total Bilirubin 0.4 mg/dL (0.2-1.3)
[2022-04-08 08:30] LABS: Partial Thromboplastin Time 24.5 sec (22.0-30.0); Prothrombin Time 10.4 sec (9.0-12.0)
[2022-04-08] MEDS ORDERED: MORPHINE SULFATE 2 MG/ML SYRINGE IVP STA (08:44)
--- NOTE | 2022-04-08 08:53 | XR ---
EXAMINATION TYPE: XR KUB DATE OF EXAM: 04/08/2022 8:35 AM CLINICAL HISTORY: Left-sided pain with nausea and vomiting. TECHNIQUE: Two Upright KUB images of the abdomen are obtained. COMPARISON: CT abdomen and pelvis January 02, 2015. FINDINGS: Gas seen in nondistended stomach. Scattered gas is seen in non-distended small bowel loops. Gas and fecal material is seen in non-distended colon. There is no visceromegaly, pneumoperitoneum, or abnormal calcification appreciated. The lung bases are clear and the osseous structures are intact . Bilateral overlying metallic nipple ornaments incidentally noted. IMPRESSION: Overall nonobstructive bowel gas pattern.
--- NOTE | 2022-04-08 08:55 | US ---
EXAMINATION TYPE: US renals and bladder DATE OF EXAM: 04/08/2022 COMPARISON: CT abdomen and pelvis January 02, 2015 CLINICAL HISTORY: Evaluate for hydronephrosis. left flank pain. left flank pain EXAM MEASUREMENTS: Right Kidney: 10.5 x 4.4 x 4.0 cm Left Kidney: 11.6 x 5.3 x 5.1 cm Right Kidney: no evidence of hydronephrosis Left Kidney: prominent collecting system Bladder: not fully distended Bilateral Jets seen: no There is no evidence for hydronephrosis in the right kidney. Mild to moderate left-sided pyelocaliec tasis. No nephrolithiasis is seen. No masses are identified in either kidney. The urinary bladder i s poorly distended and thus suboptimally evaluated. IMPRESSION: Mild to moderate left-sided hydronephrosis is felt present, consider obstructing renal ca lculus.
[2022-04-08] MEDS ORDERED: TAMSULOSIN 0.4 MG CAP.ER.24H PO STA (09:12)
[2022-04-08 09:57] VITALS: BP 104/71; PULSE 65; TEMP 98
== END 2022-04-08 10:02 | disposition home or self-care (01) ==
LOC: EC 06:53
DX: N13.2 Hydronephrosis with renal and ureteral calculous obstruction (principal); F17.200 Nicotine dependence, unspecified, uncomplicated
CPT/HCPCS: 36415; 80053; 82150; 83690; 85025; 85610; 85730; 81001; 81025; 74018; 76770; 99284; 96374; 96375 ×4; 96376; 96361; J2270 ×2; J1200; J2405; J1885; C9113

== ENCOUNTER 2022-07-02 12:36 | Emergency (ER) | payer OTHER ==
[2022-07-02 12:49] VITALS: BP 110/77
[2022-07-02] MEDS ORDERED: ACETAMINOPHEN TAB 500 MG TAB PO STA (13:12)
[2022-07-02] MEDS ORDERED: SODIUM CHLORIDE 0.9% 1,000 ML IV STA (13:12)
[2022-07-02] MEDS ORDERED: ONDANSETRON 4 MG/2 ML VIAL IVP STA (13:12)
--- NOTE | 2022-07-02 13:16 | ED ---
URI HPI - General Chief Complaint: Upper Respiratory Infection Stated Complaint: 8wks preg, flu symptoms Time Seen by Provider: 07/02/22 13:02 Source: patient, RN notes reviewed, old records reviewed Mode of arrival: ambulatory Limitations: no limitations - History of Present Illness Initial Comments: 27-year-old female presents with complaints of fever/chills, body aches and nausea vomiting for 2 days. She states that she is 8 weeks , intrau terine by ultrasound recently performed at [facility]. This is her third . She did go to urgent care yesterday diagnosed with urinary tract infection. She states she has had 2 doses of keflex. She denies any vaginal bleeding or pelvic pain. 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 No previous medical history. MD Complaint: fever, nasal congestion, other (Body aches, nausea vomiting) -: days(s) (2) Severity scale (1-10): 6 Quality: aching Consistency: constant Improves With: nothing Context: other (Continues with urinary tract infection at urgent care yesterday) Associated Symptoms: fever, chills, headache, nasal congestion, nausea, vomiting Treatments Prior to Arrival: Acetaminophen (0800) - Related Data Previous Rx's Medication Instructions Recorded HYDROcodone/APAP 5-325MG [[place] 1 tab PO Q6HR PRN 3 Days #12 tab 04/08/22 5-325] Ibuprofen 800 mg PO Q8H 7 Days #21 tab 04/08/22 Ondansetron Odt [Zofran Odt] 4 mg PO Q8HR PRN 3 Days #9 tab 04/08/22 Tamsulosin HCl [Flomax] 0.4 mg PO DAILY 7 Days #7 capsule 04/08/22 Allergies Allergy/AdvReac Type Severity Reaction Status Date / Time No Known Allergies Allergy Verified 04/08/22 08:45 Review of Systems ROS Statement: Those systems with pertinent positive or pertinent negative responses have been documented in the HPI. ROS Other: All systems not noted in ROS Statement are negative. Past Medical History Past Medical History: No Reported History Additional Past Medical History / Comment(s): heart palpitations History of Any Multi-Drug Resistant Organisms: None Reported Past Surgical History: No Surgical Hx Reported, Section Past Psychological History: Depression Smoking Status: Current every day smoker Past Alcohol Use History: None Reported Past Drug Use History: None Reported General Exam Limitations: no limitations General appearance: alert, in no apparent distress Head exam: Present: atraumatic Eye exam: Present: normal appearance. Absent: scleral icterus, conjunctival injection, periorbital swelling ENT exam: Present: mucous membranes moist Neck exam: Present: normal inspection, full ROM. Absent: tenderness, meningismus Respiratory exam: Present: normal lung sounds bilaterally. Absent: respiratory distress, wheezes, rales, rhonchi, stridor, chest wall tenderness, accessory muscle use Cardiovascular Exam: Present: tachycardia GI/Abdominal exam: Present: soft. Absent: distended, tenderness, guarding, rebound, rigid Extremities exam: Present: full ROM, normal capillary refill. Absent: tenderness, pedal edema Back exam: Present: normal inspection, full ROM. Absent: tenderness, CVA tenderness (R), CVA tenderness (L), rash noted Neurological exam: Present: alert, oriented X3 Psychiatric exam: Present: normal affect, normal mood Skin exam: Present: warm, dry, normal color. Absent: cyanosis, diaphoretic, pallor Course Vital Signs 07/02/22 07/02/22 12:42 15:31 Temperature 98.8 F 98 F Pulse Rate 119 H 92 Respiratory 20 18 Rate Blood Pressure 110/77 O2 Sat by Pulse 99 98 Oximetry Medical Decision Making - Medical Decision Making Patient is positive for coronavirus. She is currently taking Keflex for urinary tract infection prescribed by urgent care. She is agreeable to receiving the monoclonal antibodies as she has not been vaccinated. She did tolerate the infusion without any difficulties. Vital signs are stable. Lungs sounds are clear to auscultation. She denies any discharge or vaginal bleeding. She had an IUP diagnosed by ultrasound at [facility]. She was directed to self quarantine for at least 5 days or until symptoms have resolved. She was encouraged to take vitamin C, vitamin D and zinc daily. Increase her fluid intake. She is agreeable to this plan of care. Case discussed with Dr. Thomson. - Lab Data Result diagrams: 07/02/22 13:26 07/02/22 13:26 Lab Results 07/02/22 07/02/22 07/02/22 Range/Units 13:13 13:13 13:18 WBC (3.8-10.6) k/uL RBC (3.80-5.40) m/uL Hgb (11.4-16.0) gm/dL Hct (34.0-46.0) % MCV (80.0-100.0) fL MCH (25.0-35.0) pg MCHC (31.0-37.0) g/dL RDW (11.5-15.5) % Plt Count (150-450) k/uL MPV Neutrophils % % Lymphocytes % % Monocytes % % Eosinophils % % Basophils % % Neutrophils # (1.3-7.7) k/uL Lymphocytes # (1.0-4.8) k/uL Monocytes # (0-1.0) k/uL Eosinophils # (0-0.7) k/uL Basophils # (0-0.2) k/uL Sodium (137-145) mmol/L Potassium (3.5-5.1) mmol/L Chloride (98-107) mmol/L Carbon Dioxide (22-30) mmol/L Anion Gap mmol/L BUN (7-17) mg/dL Creatinine (0.52-1.04) mg/dL Est GFR (CKD-EPI)AfAm (>60 ml/min/1.73 sqM) Est GFR (CKD-EPI)NonAf (>60 ml/min/1.73 sqM) Glucose (74-99) mg/dL Calcium (8.4-10.2) mg/dL Total Bilirubin (0.2-1.3) mg/dL AST (14-36) U/L ALT (4-34) U/L Alkaline Phosphatase (38-126) U/L Total Protein (6.3-8.2) g/dL Albumin (3.5-5.0) g/dL Amylase (30-110) U/L Lipase (23-300) U/L Urine Color Yellow Urine Appearance Cloudy H (Clear) Urine pH 6.0 (5.0-8.0) Ur Specific [place] 1.014 (1.001-1.035) Urine Protein Trace H (Negative) Urine Glucose (UA) Negative (Negative) Urine Ketones Negative (Negative) Urine Blood Negative (Negative) Urine Nitrite Negative (Negative) Urine Bilirubin Negative (Negative) Urine Urobilinogen <2.0 (<2.0) mg/dL Ur Leukocyte Esterase Negative (Negative) Urine WBC 6 H (0-5) /hpf Ur Squamous Epith Cells 12 H (0-4) /hpf Urine Mucus Moderate H (None) /hpf Urine HCG, Qual (Not Detectd) Coronavirus (PCR) Detected A (Not Detectd) Influenza Type A RNA Not Detected (Not Detectd) Influenza Type B (PCR) Not Detected (Not Detectd) 07/02/22 07/02/22 07/02/22 Range/Units 13:18 13:26 13:26 WBC 8.8 (3.8-10.6) k/uL RBC 4.23 (3.80-5.40) m/uL Hgb 13.1 (11.4-16.0) gm/dL Hct 38.5 (34.0-46.0) % MCV 91.1 (80.0-100.0) fL MCH 31.0 (25.0-35.0) pg MCHC 34.1 (31.0-37.0) g/dL RDW 11.7 (11.5-15.5) % Plt Count 142 L (150-450) k/uL MPV 9.1 Neutrophils % 91 % Lymphocytes % 4 % Monocytes % 3 % Eosinophils % 1 % Basophils % 0 % Neutrophils # 8.0 H (1.3-7.7) k/uL Lymphocytes # 0.3 L (1.0-4.8) k/uL Monocytes # 0.3 (0-1.0) k/uL Eosinophils # 0.1 (0-0.7) k/uL Basophils # 0.0 (0-0.2) k/uL Sodium 135 L (137-145) mmol/L Potassium 3.8 (3.5-5.1) mmol/L Chloride 101 (98-107) mmol/L Carbon Dioxide 22 (22-30) mmol/L Anion Gap 12 mmol/L BUN 9 (7-17) mg/dL Creatinine 0.50 L (0.52-1.04) mg/dL Est GFR (CKD-EPI)AfAm >90 (>60 ml/min/1.73 sqM) Est GFR (CKD-EPI)NonAf >90 (>60 ml/min/1.73 sqM) Glucose 88 (74-99) mg/dL Calcium 9.3 (8.4-10.2) mg/dL Total Bilirubin 0.2 (0.2-1.3) mg/dL AST 19 (14-36) U/L ALT 14 (4-34) U/L Alkaline Phosphatase 70 (38-126) U/L Total Protein 7.2 (6.3-8.2) g/dL Albumin 4.3 (3.5-5.0) g/dL Amylase 66 (30-110) U/L Lipase 42 (23-300) U/L Urine Color Urine Appearance (Clear) Urine pH (5.0-8.0) Ur Specific [place] (1.001-1.035) Urine Protein (Negative) Urine Glucose (UA) (Negative) Urine Ketones (Negative) Urine Blood (Negative) Urine Nitrite (Negative) Urine Bilirubin (Negative) Urine Urobilinogen (<2.0) mg/dL Ur Leukocyte Esterase (Negative) Urine WBC (0-5) /hpf Ur Squamous Epith Cells (0-4) /hpf Urine Mucus (None) /hpf Urine HCG, Qual Detected (Not Detectd) Coronavirus (PCR) (Not Detectd) Influenza Type A RNA (Not Detectd) Influenza Type B (PCR) (Not Detectd) Disposition Clinical Impression: COVID-19, COVID-19 affecting in first trimester Disposition: HOME SELF-CARE Condition: Good Instructions (If sedation given, give patient instructions): COVID-19 (Coronavirus Disease 2019) (ED), How to Recover from COVID-19 at Home (ED) Additional Instructions: Increase your fluid intake. Take Tylenol as needed for pain or discomfort. Vitamin C, vitamin D and zinc to improve immune health. For nausea you can take Zofran or Benadryl [id number]. Self quarantine for 10 days from symptom onset. If after 5 days you have no symptoms or fever, you can go into public wearing just a mask. Follow-up with your primary care doctor and [facility] this week. Return to the emergency room with any new or concerning symptoms. Is patient prescribed a controlled substance at d/c from ED?: No Referrals: None,Stated [Primary Care Provider] - 1-2 days Time of Disposition: 15:21
[2022-07-02 13:42] LABS: Appearance,Urine Cloudy (Clear); Bilirubin,Urine Negative (Negative); Blood,Urine Negative (Negative); Color,Urine Yellow; Glucose,Urine (UA) Negative (Negative); Ketones,Urine Negative (Negative); Leukocyte Esterase,Urine Negative (Negative); Mucus,Urine Moderate /hpf; Nitrite,Urine Negative (Negative); Protein,Urine Trace (Negative); Specific Gravity,Urine 1.014 (1.001-1.035); Squamous Epithelial Cell,Urine 12 /hpf (0-4); Urobilinogen,Urine <2.0 mg/dL (<2.0); WBC,Urine 6 /hpf (0-5)
[2022-07-02 13:44] LABS: Basophils % (A) 0 %; Eosinophils # (A) 0.1 k/uL (0-0.7); Eosinophils % (A) 1 %; HCT 38.5 % (34.0-46.0); HGB 13.1 gm/dL (11.4-16.0); Lymphocytes # (A) 0.3 k/uL (1.0-4.8); Lymphocytes % (A) 4 %; MCHC 34.1 g/dL (31.0-37.0); MCV 91.1 fL (80.0-100.0); Mean Platelet Volume 9.1; Monocytes # (A) 0.3 k/uL (0-1.0); Monocytes % (A) 3 %; Neutrophils % (A) 91 %; Platelet Count 142 k/uL (150-450); RBC 4.23 m/uL (3.80-5.40); RDW 11.7 % (11.5-15.5); WBC 8.8 k/uL (3.8-10.6)
[2022-07-02 13:51] LABS: ALT 14 U/L (4-34); AST 19 U/L (14-36); African American GFR (CKD) >90 (>60 ml/min/1.73 sqM); Albumin 4.3 g/dL (3.5-5.0); Alkaline Phosphatase 70 U/L (38-126); Amylase 66 U/L (30-110); Anion Gap 12 mmol/L; Blood Urea Nitrogen 9 mg/dL (7-17); Calcium 9.3 mg/dL (8.4-10.2); Carbon Dioxide 22 mmol/L (22-30); Chloride 101 mmol/L (98-107); Glucose 88 mg/dL (74-99); Lipase 42 U/L (23-300); Non-African American GFR(CKD) >90 (>60 ml/min/1.73 sqM); Potassium 3.8 mmol/L (3.5-5.1); Sodium 135 mmol/L (137-145); Total Bilirubin 0.2 mg/dL (0.2-1.3); Total Protein 7.2 g/dL (6.3-8.2)
[2022-07-02] MEDS ORDERED: ONDANSETRON 4 MG ODT STARTER PACK 2 TAB BTL PO STA (14:14)
[2022-07-02] MEDS ORDERED: BEBTELOVIMAB (EUA) 175 MG/2 ML VIAL IV ONE (14:15)
[2022-07-02 15:32] VITALS: PULSE 92; RESP 18; TEMP 98
== END 2022-07-02 15:36 | disposition home or self-care (01) ==
LOC: EC 12:36
DX: O98.511 Other viral diseases complicating pregnancy, first trimester (principal); U07.1 COVID-19; O99.331 Smoking (tobacco) complicating pregnancy, first trimester; F17.200 Nicotine dependence, unspecified, uncomplicated; Z3A.08 8 weeks gestation of pregnancy
CPT/HCPCS: 99283; 96374; 96361; 36415; 80053; 82150; 83690; 85025; 81001; 81025; 87502; 87635; J2405; S0119; Q0222

== ENCOUNTER 2022-09-16 17:17 | Emergency (ER) | payer OTHER ==
[2022-09-16] MEDS ORDERED: ACETAMINOPHEN TAB 500 MG TAB PO STA (18:38)
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
[2022-09-16 19:54] LABS: Basophils # (A) 0.1 k/uL (0-0.2); Basophils % (A) 0 %; Eosinophils # (A) 0.2 k/uL (0-0.7); Eosinophils % (A) 1 %; HCT 36.3 % (34.0-46.0); HGB 12.8 gm/dL (11.4-16.0); Lymphocytes # (A) 2.3 k/uL (1.0-4.8); Lymphocytes % (A) 16 %; MCH 31.3 pg (25.0-35.0); MCHC 35.1 g/dL (31.0-37.0); MCV 89.1 fL (80.0-100.0); Mean Platelet Volume 9.5; Monocytes # (A) 0.4 k/uL (0-1.0); Monocytes % (A) 3 %; Neutrophils % (A) 78 %; Platelet Count 176 k/uL (150-450); RBC 4.07 m/uL (3.80-5.40); RDW 12.5 % (11.5-15.5)
[2022-09-16 20:07] LABS: INR 0.9 (<1.2); Partial Thromboplastin Time 22.3 sec (22.0-30.0); Prothrombin Time 9.9 sec (9.0-12.0)
[2022-09-16 20:09] LABS: ALT 15 U/L (4-34); AST 19 U/L (14-36); African American GFR (CKD) >90 (>60 ml/min/1.73 sqM); Albumin 3.8 g/dL (3.5-5.0); Alkaline Phosphatase 73 U/L (38-126); Anion Gap 7 mmol/L; Blood Urea Nitrogen 7 mg/dL (7-17); Calcium 9.2 mg/dL (8.4-10.2); Carbon Dioxide 24 mmol/L (22-30); Chloride 105 mmol/L (98-107); Glucose 77 mg/dL (74-99); Non-African American GFR(CKD) >90 (>60 ml/min/1.73 sqM); Sodium 136 mmol/L (137-145); Total Bilirubin 0.3 mg/dL (0.2-1.3); Total Protein 6.9 g/dL (6.3-8.2)
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
[2022-09-16 20:19] LABS: Appearance,Urine Cloudy (Clear); Bilirubin,Urine Negative (Negative); Blood,Urine Small (Negative); Color,Urine Yellow; Glucose,Urine (UA) Negative (Negative); Leukocyte Esterase,Urine Trace (Negative); Mucus,Urine Many /hpf; Nitrite,Urine Negative (Negative); Protein,Urine Trace (Negative); RBC,Urine 27 /hpf (0-5); Specific Gravity,Urine 1.022 (1.001-1.035); Squamous Epithelial Cell,Urine 32 /hpf (0-4); Urobilinogen,Urine <2.0 mg/dL (<2.0); WBC,Urine <1 /hpf (0-5)
[2022-09-16 20:23] LABS: Ketones,Urine 2+ (Negative)
[2022-09-16 21:43] VITALS: BP 97/63; PULSE 63; RESP 20; TEMP 97.8
== END 2022-09-16 22:20 | disposition home or self-care (01) ==
LOC: EC 17:17
DX: O26.892 Other specified pregnancy related conditions, second trimester (principal); O99.512 Diseases of the respiratory system complicating pregnancy, second trimester; O99.342 Other mental disorders complicating pregnancy, second trimester; O99.332 Smoking (tobacco) complicating pregnancy, second trimester; O9A.212 Injury, poisoning and certain other consequences of external causes complicating pregnancy, second trimester; J45.909 Unspecified asthma, uncomplicated; F32.A Depression, unspecified; F17.200 Nicotine dependence, unspecified, uncomplicated; Z3A.18 18 weeks gestation of pregnancy; V89.2XXA Person injured in unspecified motor-vehicle accident, traffic, initial encounter
CPT/HCPCS: 36415; 72050; 76805; 80053; 81001; 85025; 85610; 85730; 86900; 86901; 99284

== ENCOUNTER 2022-10-05 13:56 | Outpatient (CLI) | payer OTHER ==
[2022-10-05 14:25] VITALS: BP 129/68; PULSE 75; RESP 18; TEMP 98.1
--- NOTE | 2022-10-09 10:25 | P.MSEPDOC ---
Presenting Problems - Arrival Data Date of Arrival on Unit: 10/05/22 Time of Arrival on Unit: 13:56 Mode of Transport: Ambulatory - Complaint OB-Reason for Admission/Chief Complaint: Pain Comment: vaginal pain & pressure x 1 mo, worsening today Medical History - Information : 2 Para: 1 Term: 1 : 0 Abortions: Spontaneous or Elective: 0 Number of Living Children: 1 - Gestational Age Gestational Age by JAI (wks/days): 20 Weeks and 5 Days - History Comment: previous cs at term, x1 Review of Systems - Review of Systems Constitutional: No problems Breast: No problems ENT: No problems Cardiovascular: No problems Respiratory: No problems Gastrointestinal: No problems Genitourinary: No problems Musculoskeletal: No problems Neurological: No problems Skin: No problems Vital Signs - Temperature Temperature: 98.1 F Temperature Source: Oral - Pulse Right Sitting Brachial Pulse Rate: 75 Pulse Assessment Method: Automatic Cuff - Respirations Respiratory Rate: 18 Oxygen Delivery Method: Room Air O2 Sat by Pulse Oximetry: 99 - Blood Pressure Right Arm Sitting Blood Pressure: 129/68 Blood Pressure Mean: 88 Blood Pressure Source: Automatic Cuff Medical Screen Scoring - Cervical Exam Dilation (cm): 0 Effacement (%): 0 Station: -3 - Assessment - Baby A Baseline FHR: 130 Physician Notification - Physician Notified Physician Notified Date: 10/05/22 Physician Notified Time: 14:15 Physician: Faiza Starkey Order Received: Yes - Notification Comment Comment: Dc home. Off work and pelvic rest until seen by Dr Bustamante on Wed as scheduled. Pt enocuraged to return with continued or increased symptoms. Maternal Triage Index - Maternal Triage Index Presenting for scheduled procedure w/no complaint: No - Stat/Priority 1 Stat Priority 1: No - Urgent/Priority 2 Urgent Priority 2: No - Prompt/Priority 3 Prompt Priority 3: No - Non-Urgent/Priority 4 Non-Urgent Priority 4: Yes Criteria Met for Priority 4: vaginal discomfort, cervix closed, FHR 130-145 per doppler. Denies contractions, abdomen soft. No leaking or bleeding Disposition - Disposition OB Disposition: Physician follow up in office, Discharge to home Discharge Date: 10/05/22 Discharge Time: 14:20 I agree with the RN Medical Screening Exam: Yes Case reviewed; plan agreed upon as documented in EMR&OBIX.: Yes Diagnosis: FALSE LABOR BEFORE 37 COMPLETED WEEKS OF GEST, SECOND TRI
== END 2022-10-05 14:15 | disposition home or self-care (01) ==
LOC: FBPOP 13:56
PROVIDERS: ATTEND Obstetrics & Gynecology
DX: O26.93 Pregnancy related conditions, unspecified, third trimester (principal); Z3A.20 20 weeks gestation of pregnancy; Z87.891 Personal history of nicotine dependence
CPT/HCPCS: 99213

== ENCOUNTER 2023-01-17 11:57 | Outpatient (CLI) | payer OTHER ==
--- NOTE | 2023-01-17 13:27 | US ---
EXAMINATION TYPE: US OB limited DATE OF EXAM: 01/17/2023 COMPARISON: NONE CLINICAL INDICATION: Female, 28 years old with history of check placement of placenta and check for b leeding; EXAM PERFORMED: Transabdominal (TA) GESTATIONAL AGE / DATING Physician Established: (35weeks/4 days) EDC: 02/17/2023 SURVEY PLACENTA: Anterior PREVIA: No Previa Ultrasound evidence of abruption? No obvious abruption seen at time of exam. There is low level echoes noted within amniotic fluid at t ip of placenta. This could represent blood within the amniotic fluid. PRESENTATION: Variable HEART RATE: 135 bpm RHYTHM: Normal No obvious abruption seen at time of exam. There are small amount of low level echoes within the abdo men excluded at the tip of the placenta. IMPRESSION: No obvious abruption seen at this time. Some low-level echoes demonstrated within the am niotic fluid at the tip of the placenta which could represent blood products.
[2023-01-17] MEDS ORDERED: ACETAMINOPHEN TAB 500 MG TAB PO STA (13:45)
[2023-01-17 14:20] LABS: Basophils % (A) 0 %; Eosinophils # (A) 0.1 k/uL (0-0.7); Eosinophils % (A) 1 %; HCT 36.3 % (34.0-46.0); HGB 12.5 gm/dL (11.4-16.0); Lymphocytes # (A) 1.8 k/uL (1.0-4.8); Lymphocytes % (A) 14 %; MCH 30.8 pg (25.0-35.0); MCHC 34.4 g/dL (31.0-37.0); MCV 89.4 fL (80.0-100.0); Mean Platelet Volume 11.5; Monocytes # (A) 0.5 k/uL (0-1.0); Monocytes % (A) 3 %; Neutrophils # (A) 10.7 k/uL (1.3-7.7); Neutrophils % (A) 81 %; Platelet Count 145 k/uL (150-450); RBC 4.06 m/uL (3.80-5.40); RDW 12.3 % (11.5-15.5); WBC 13.3 k/uL (3.8-10.6)
[2023-01-17 18:35] VITALS: BP 143/63; PULSE 74; RESP 18; TEMP 97.8
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
== END 2023-01-17 18:10 | disposition home or self-care (01) ==
LOC: FBPOP 11:57
PROVIDERS: ATTEND Obstetrics & Gynecology
DX: O9A.213 Injury, poisoning and certain other consequences of external causes complicating pregnancy, third trimester (principal); Z3A.35 35 weeks gestation of pregnancy; O34.218 Maternal care for other type scar from previous cesarean delivery; F11.90 Opioid use, unspecified, uncomplicated; Z87.891 Personal history of nicotine dependence
CPT/HCPCS: 59025; 85025; 76815; G0463; 99215

== ENCOUNTER 2023-02-10 10:06 | Inpatient (IN) | payer OTHER ==
[2023-02-10] MEDS ORDERED: miSOPROStoL 200 MCG TAB PO PRN (10:22)
[2023-02-10] MEDS ORDERED: CITRIC ACID-SODIUM CITRATE 15 ML CUP PO ONE (10:22)
[2023-02-10] MEDS ORDERED: CARBOPROST TROMETHAMINE 250 MCG/ML 1 ML AMP IM PRN (10:22)
[2023-02-10] MEDS ORDERED: OXYTOCIN 10 UNIT/ML 1 ML VIAL IM PRN (10:22)
[2023-02-10] MEDS ORDERED: METHYLERGONOVINE 0.2 MG/ML 1 ML AMP IM PRN (10:22)
[2023-02-10] MEDS ORDERED: TRANEXAMIC ACID IN NACL,ISO-OS 1,000 MG in EMPTY BAG 1 BAG IV PRN (10:22)
[2023-02-10 10:39] LABS: Basophils % (A) 0 %; Eosinophils # (A) 0.1 k/uL (0-0.7); Eosinophils % (A) 1 %; HCT 38.7 % (34.0-46.0); HGB 12.7 gm/dL (11.4-16.0); Lymphocytes # (A) 1.7 k/uL (1.0-4.8); Lymphocytes % (A) 13 %; MCH 30.1 pg (25.0-35.0); MCHC 32.8 g/dL (31.0-37.0); MCV 91.7 fL (80.0-100.0); Mean Platelet Volume 12.1; Monocytes # (A) 0.4 k/uL (0-1.0); Monocytes % (A) 3 %; Neutrophils # (A) 10.5 k/uL (1.3-7.7); Neutrophils % (A) 82 %; Platelet Count 147 k/uL (150-450); RBC 4.22 m/uL (3.80-5.40); RDW 12.2 % (11.5-15.5); WBC 12.8 k/uL (3.8-10.6)
[2023-02-10 12:12] LABS: Large Platelets Present
[2023-02-10 12:13] LABS: RBC Morphology Normal
[2023-02-10] MEDS ORDERED: OXYTOCIN 30 UNITS/500 ML NS BAG IV ONE (12:14)
[2023-02-10] MEDS ORDERED: KETOROLAC 15 MG/ML 1 ML VIAL ONE (12:14)
[2023-02-10] MEDS ORDERED: ONDANSETRON 4 MG/2 ML VIAL ONE (12:14)
[2023-02-10] MEDS ORDERED: MIDAZOLAM 2 MG/2 ML VIAL ONE (12:14)
[2023-02-10] MEDS ORDERED: MORPHINE SULFATE (PF) 0.3 MG/0.3 ML SYR ONE (12:14)
[2023-02-10] MEDS ORDERED: NALBUPHINE 10 MG/ML (10 ML MDV) IV PRN (12:40)
[2023-02-10] MEDS ORDERED: NALOXONE 0.4 MG/ML 1 ML VIAL IV PRN ×2 (12:40→13:26)
[2023-02-10] MEDS ORDERED: HYDROmorphone 0.5 MG/0.5 ML SYRINGE IVP PRN (12:40)
--- NOTE | 2023-02-10 13:19 | P.HPOB ---
History of Present Illness H&P Date: 02/10/23 Chief Complaint: Scheduled Repeat Section Ms. Miller is a 28 year old at 39 weeks and 0 days with EDC of 02/17/2023 by 8 week ultrasound presenting for schedule repeat section with bilateral salpingectomy. has been complicated by a mood disorder for which she goes to therapy at [facility]. 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 Obstetric history: 1 FTCS Maternal serologies: blood type A positive, antibody screen negative, rubella immune, VDRL Non-reactive, HBsAg negative, HIV negative, HCV antibody positive, HCV RT PCR not detected, 1 hour GTT 116, GBS negative Past Medical History Past Medical History: Asthma Additional Past Medical History / Comment(s): heart palpitations, hepatitis C History of Any Multi-Drug Resistant Organisms: None Reported Past Surgical History: Section Additional Past Surgical History / Comment(s): wisdom teeth extracted Past Anesthesia/Blood Transfusion Reactions: No Reported Reaction Past Psychological History: Depression Smoking Status: Former smoker Past Alcohol Use History: None Reported Past Drug Use History: None Reported Medications and Allergies Home Medications Medication Instructions Recorded Confirmed Type Tme-Orpu-Ybado Acid 1 cap PO DAILY 09/16/22 02/02/23 History [-U Capsule (formulary)] Aspirin 81 mg PO DAILY 10/05/22 02/02/23 History Allergies Allergy/AdvReac Type Severity Reaction Status Date / Time No Known Allergies Allergy Verified 02/02/23 09:28 Exam Vital Signs Temp Pulse Resp BP Pulse Ox 02/10/23 10:22 97.6 F 85 16 136/62 97 Intake and Output 02/09/23 02/10/23 02/10/23 22:59 06:59 14:59 Other: Weight 90.265 kg Focused physical exam is performed. Patient in no distress. Abdomen soft. heart tones reactive and reassuring. Results Result Diagrams: 02/10/23 10:30 Abnormal Lab Results - Last 24 Hours (Table) 02/10/23 Range/Units 10:30 WBC 12.8 H (3.8-10.6) k/uL Plt Count 147 L (150-450) k/uL Neutrophils # 10.5 H (1.3-7.7) k/uL Assessment and Plan Assessment: 28 year old at 39 weeks and 0 days presenting for schedule repeat section with bilateral salpingectomy Plan: Admit, NPO, mIVF, 2g Ancef for surgical ppx. Time with Patient: Less than 30 (10 minutes)
[2023-02-10] MEDS ORDERED: ZOLPIDEM 5 MG TAB PO PRN (13:26)
[2023-02-10] MEDS ORDERED: METOCLOPRAMIDE 5 MG/ML 2 ML VIAL IVP PRN (13:26)
[2023-02-10] MEDS ORDERED: LANOLIN CREAM 5 GM TUBE TOPICAL PRN (13:26)
[2023-02-10] MEDS ORDERED: diphenhydrAMINE 50 MG/ML 1 ML VIAL IVP PRN ×2 (13:26)
[2023-02-10] MEDS ORDERED: diphenhydrAMINE 50 MG CAP PO PRN (13:26)
[2023-02-10] MEDS ORDERED: diphenhydrAMINE 25 MG CAP PO PRN (13:26)
[2023-02-10] MEDS ORDERED: ONDANSETRON 4 MG/2 ML VIAL IVP PRN (13:26)
--- NOTE | 2023-02-10 13:26 | P.OP ---
Date of Procedure: 02/10/23 Preoperative Diagnosis: 1. Term IUP at 39 weeks 2. History of prior section, no desire to TOLAC 3. Desires permanent sterilization and risk reduction Postoperative Diagnosis: Same Procedure(s) Performed: Repeat Lower Transverse Section with Bilateral Salpingectomy Implants: None Anesthesia: spinal Surgeon: Cinthya Bustamante [employer]: Faiza Starkey Estimated Blood Loss (ml): 399 IV fluids (ml): 500 Urine output (ml): 200 Pathology: none sent Condition: stable Disposition: floor Indications for Procedure: 28 year old at 39 weeks and 0 days presenting for schedule repeat section. The patient has no desire to TOLAC. She also requests permanent sterilization and risk reduction with bilateral salpingectomy. The patient is counseled about the risks of surgery including bleeding, infection, damage to surrounding structures including bladder/bowels/ureters/ovaries, risk of regret after sterilization. I discussed that salpingectomies cannot be reversed and she will never be able to achieve a again without the help of IVF. Patient understands and desires to proceed with surgery as scheduled. Operative Findings: Viable male infant in left occiput transverse presentation, colorless amniotic fluid, weight 7#, apgars 9/9. Normal uterus and bilateral tubes and ovaries. Description of Procedure: The patient was taken to the operating room where spinal anesthesia was found to be adequate. 2 grams were given for infection prophylaxis. She was prepared and draped in the dorsal supine position with a leftward tilt. A Pfannenstiel skin incision was made with the scalpel. The incision was carried down to the fascia. The fascia was incised and extended laterally with Acuna scissors. The superior aspect of the fascia was grasped with Dusty clamps. The underlying rectus muscle was dissected off sharply with Acuna scissors. In a similar fashion, the inferior aspect of the fascia was elevated with Dusty clamps and the rectus muscle and pyramidalis were dissected off. Excellent hemostasis was achieved with the bovie. The rectus muscle was in the midline down to the level of the pubic symphysis. Pre-peritoneal fatty tissue was bluntly dissected to expose the peritoneum. The peritoneum was found to be free of adherent bowel and entered sharply with Acuna scissors. The peritoneal incision was extended superiorly and inferiorly to the bladder reflection with good visualization of the bladder. The bladder blade was inserted and vesicouterine peritoneum was identified. Intraabdominal survey revealed scant, clear peritoneal fluid and the thinned-out lower uterine segment. The vesicouterine peritoneum was opened with scissors and the bladder flap was developed. The bladder blade was repositioned to keep the bladder out of the operative field. The lower uterine segment was incised with a scalpel. The amniotic sac was ruptured and clear fluid was noted. The uterine incision was extended bluntly with lateral and upward traction. The fetus was in left occiput transverse position. The head was elevated out of the pelvis with special attention paid to avoid using the uterine incision as a fulcrum. Gentle fundal pressure was applied once the head was brought into the incision. The infant was delivered with no difficulty. The mouth and nose were s uctioned with a bulb. The cord was clamped and cut. The infant was handed off to the assistant speech language pathologist. IV oxytocin was initiated to facilitate uterine contractions. The placenta was delivered intact with manual massage of uterine fundus. The uterus was then exteriorized and the inside of the uterus was gently wiped with a lap sponge to assure complete removal of placental membranes. The uterine incision was closed with a 0-Polysorb suture in a running locked fashion. A second imbricating layer with 0-Vicryl was used for hemostasis. The ovaries and tubes were found to be normal. Bilateral fallopian tubes were isolated, the fimbriated ends were identified and sequentially ligated and cut to the level of the uterine cornua with the LigaSure device.The uterus and ovaries were then gently returned to the abdominal cavity. The blood clots and fluid were wiped out of the abdomen and pelvis with moist laparotomy sponges. The uterine incision was reinspected and excellent hemostasis was noted. The fascial layer was closed with a 0-Vicryl suture. The subcutaneous tissue was reapproximated with 2-0 Plain Gut. The skin was closed with 4-0 Monocryl in a subcuticular fashion. The patient tolerated the procedure well. All the counts were correct times two. The patient was taken to the recovery room in a stable condition.
[2023-02-10] MEDS: KETOROLAC 15 MG/ML 1 ML VIAL IVP SCH (16:36)
[2023-02-10] MEDS: ACETAMINOPHEN TAB 500 MG TAB PO SCH ×2 (17:38→19:58)
[2023-02-10] MEDS: SENNOSIDES-DOCUSATE SODIUM 1 EACH TAB PO SCH (19:59)
[2023-02-10] MEDS: LACTATED RINGERS 1,000 ML IV SCH (20:00)
[2023-02-11] MEDS: KETOROLAC 15 MG/ML 1 ML VIAL IVP SCH ×3 (00:40→07:45)
[2023-02-11] MEDS: ACETAMINOPHEN TAB 500 MG TAB PO SCH ×4 (04:10→22:53)
[2023-02-11 04:25] VITALS: RESP 16
--- NOTE | 2023-02-11 07:30 | P.PN ---
Progress Note - Text Date: 02/11/2023 Time: 07:02 The patient is status post section Vital signs stable VAS: 0-10 Patient has no complaints of pain. The patient incurred some minimal itching yesterday, this itching is now subsiding. Pain meds to be managed by service.
[2023-02-11] MEDS: LACTATED RINGERS 1,000 ML IV SCH (07:42)
[2023-02-11] MEDS: SENNOSIDES-DOCUSATE SODIUM 1 EACH TAB PO SCH ×2 (07:45→20:15)
[2023-02-11] MEDS ORDERED: SIMETHICONE 80 MG CHEWABLE PO PRN (09:58)
[2023-02-11] MEDS: SIMETHICONE 80 MG CHEWABLE PO PRN ×2 (10:27→14:00)
--- NOTE | 2023-02-11 11:15 | P.PNOBGPC ---
Subjective - Subjective Principal diagnosis: s/p repeat cesaren section with bilateral salpingectomy Interval history: The patient is doing well this morning and had no acute events overnight. She has no complaints this morning. She reports minimal lochia, voiding without difficulty, ambulating, and eating/drinking without nausea or vomiting. She is not yet passing flatus. She is formula her without difficulty. She denies chest pain, shortness of breathing, fevers, or chills overnight. She denies pain or swelling in the legs. Patient reports: Reports appetite normal, Reports voiding normally, Reports pain well controlled, Reports ambulating normally [place]: doing well Objective - Vital Signs Latest vital signs: Vital Signs Temp Pulse Resp BP Pulse Ox 02/11/23 07:37 98.1 F 56 L 16 135/76 99 02/11/23 04:00 97.8 F 56 L 16 118/81 100 02/11/23 00:00 98.8 F 67 15 115/72 94 L 02/10/23 20:00 98.2 F 65 19 129/78 98 02/10/23 17:37 98 02/10/23 17:00 16 02/10/23 16:12 70 16 121/68 02/10/23 15:40 16 02/10/23 14:44 63 16 107/73 02/10/23 14:09 53 L 16 115/62 02/10/23 13:59 62 16 112/70 02/10/23 13:39 99.0 F 64 16 104/68 02/10/23 13:36 16 98 02/10/23 13:29 60 16 116/58 02/10/23 13:14 96.2 F L 75 16 114/56 98 Intake and Output 02/10/23 02/11/23 02/11/23 22:59 06:59 14:59 Intake Total 480 Output Total 950 Balance -470 Intake: Oral 480 Output: Urine 900 Uretheral ([place]) 900 Output, Quantitative 50 Blood Loss Other: Voiding Method Indwelling Catheter Indwelling Catheter # Voids 1 - Exam Extremities: Present: normal Abdomen: Present: normal appearance, soft Incision: Present: normal, dry, intact Uterus: Present: normal, firm - Labs Labs: Abnormal Lab Results - Last 24 Hours (Table) 02/10/23 Range/Units 10:30 Plt Count 147 L (150-450) k/uL Neutrophils # 10.5 H (1.3-7.7) k/uL Assessment and Plan Assessment: 28 year old now s/p schedule repeat C/S with bilateral salpingectomy at 39 weeks Plan: 1. Postoperative. The patient is meeting all milestones appropriately. Continue to monitor. 2. Male infant at bedside. Doing well. Formula feeding. Status post circumcision this morning. Disposition: Anticipate discharge home tomorrow.
[2023-02-11 12:30] LABS: Basophils % (A) 0 %; Eosinophils # (A) 0.1 k/uL (0-0.7); Eosinophils % (A) 0 %; HGB 12.1 gm/dL (11.4-16.0); Lymphocytes # (A) 1.4 k/uL (1.0-4.8); Lymphocytes % (A) 10 %; MCH 30.5 pg (25.0-35.0); MCHC 33.7 g/dL (31.0-37.0); MCV 90.5 fL (80.0-100.0); Mean Platelet Volume 12.5; Monocytes # (A) 0.4 k/uL (0-1.0); Monocytes % (A) 3 %; Neutrophils # (A) 11.2 k/uL (1.3-7.7); Neutrophils % (A) 85 %; Platelet Count 129 k/uL (150-450); RBC 3.97 m/uL (3.80-5.40); RDW 12.5 % (11.5-15.5); WBC 13.2 k/uL (3.8-10.6)
[2023-02-11 13:13] LABS: Large Platelets Present; RBC Morphology Normal
[2023-02-11] MEDS: IBUPROFEN 600 MG TAB PO SCH ×2 (13:56→20:14)
[2023-02-12] MEDS: IBUPROFEN 600 MG TAB PO SCH ×2 (02:22→08:01)
[2023-02-12] MEDS: ACETAMINOPHEN TAB 500 MG TAB PO SCH ×2 (05:06→11:48)
[2023-02-12] MEDS: SENNOSIDES-DOCUSATE SODIUM 1 EACH TAB PO SCH (08:01)
--- NOTE | 2023-02-12 09:29 | P.DS ---
Providers Date of admission: 02/10/23 10:06 Expected date of discharge: 02/12/23 Attending physician: Cinthya Bustamante MD Primary care physician: Stated None Hospital Course: 28 year old POD#2 s/p scheduled repeat section with bilateral salpingectomy who desires discharge home today. She is meeting all postoperative and milestones appropriately. She is eating and drinking without nausea or vomiting, she is ambulating and voiding without difficulty, passing flatus, lochia is minimal, formula-feeding without difficulty. She denies chest pain, shortness of breathing, pain/swelling in legs. I discussed incision care and reasons to call the office including heavy bleeding, foul-smelling discharge, severe/worsening pain, nausea/vomiting, fevers/chills, or any other concerns. Recommend 6 weeks of pelvic rest. All questions answered. Assessment: 28 year old POD#2 s/p scheduled rLTCS with bilateral salpingectomy Patient Condition at Discharge: Good Plan - Discharge Summary Discharge Rx Participant: No New Discharge Prescriptions: New Ibuprofen [Motrin] 600 mg PO Q6HR PRN #30 tab PRN Reason: Mild Pain (Scale 1 To 3) oxyCODONE HCL [Roxicodone] 5 mg PO Q6HR PRN 3 Days #12 tab PRN Reason: Breakthrough Pain Acetaminophen Tab [Tylenol] 650 mg PO Q6H PRN #30 tab PRN Reason: Mild Pain (Scale 1 To 3) polyethylene glycoL 3350 [Miralax] 17 gm PO DAILY PRN #10 packet PRN Reason: Constipation No Action Aspirin 81 mg PO DAILY [id number] Acid [-U Capsule (formulary)] 1 cap PO DAILY Discharge Medication List Egw-Tyed-Okiee Acid [-U Capsule (formulary)] 1 cap PO DAILY 09/16/22 [History] Aspirin 81 mg PO DAILY 10/05/22 [History] Acetaminophen Tab [Tylenol] 650 mg PO Q6H PRN #30 tab 02/12/23 [Rx] Ibuprofen [Motrin] 600 mg PO Q6HR PRN #30 tab 02/12/23 [Rx] oxyCODONE HCL [Roxicodone] 5 mg PO Q6HR PRN 3 Days #12 tab 02/12/23 [Rx] polyethylene glycoL 3350 [Miralax] 17 gm PO DAILY PRN #10 packet 02/12/23 [Rx]
[2023-02-12 10:01] VITALS: BP 128/88; PULSE 60; TEMP 98.4
== END 2023-02-12 13:30 | disposition home or self-care (01) | DRG 539 ==
LOC: 4FBP 10:06
PROVIDERS: ADMIT Obstetrics & Gynecology; ATTEND Obstetrics & Gynecology
PROC: 0UB70ZZ Excision of Bilateral Fallopian Tubes, Open Approach (ICD-10-PCS; 2023-02-10)
PROC: 10D00Z1 Extraction of Products of Conception, Low, Open Approach (ICD-10-PCS; principal; 2023-02-10 12:00)
DX: O34.211 Maternal care for low transverse scar from previous cesarean delivery (principal); F19.91 Other psychoactive substance use, unspecified, in remission; O32.2XX0 Maternal care for transverse and oblique lie, not applicable or unspecified; Z37.0 Single live birth; Z30.2 Encounter for sterilization; Z3A.39 39 weeks gestation of pregnancy; Z87.891 Personal history of nicotine dependence; Z79.82 Long term (current) use of aspirin; Z86.19 Personal history of other infectious and parasitic diseases
CPT/HCPCS: 85025; 86850; 86900; 86901; 88302